=== PATIENT | female | born 1995 ===

== ENCOUNTER 2019-06-17 14:39 | Inpatient (IN) ==
[2019-06-17] MEDS ORDERED: LIDOCAINE 1% 50 ML VIAL MISC INJ ONE (15:55)
[2019-06-17] MEDS ORDERED: MEPERIDINE 50 MG/1 ML VIAL IM PRN (15:55)
[2019-06-17] MEDS ORDERED: ONDANSETRON 4 MG/2 ML VIAL IV PRN (15:55)
[2019-06-17] MEDS ORDERED: BUTORPHANOL 2 MG/ML VIAL IV PRN (15:55)
[2019-06-17] MEDS ORDERED: DINOPROSTONE VAG GEL 10 MG SYRINGE VAG ONE (15:58)
[2019-06-17] MEDS: LACTATED RINGERS 1,000 ML IV SCH (16:03)
[2019-06-17 16:41] LABS: Basophils % 0.2 % (0.0-0.8); Eosinophils % 0.2 % (0.00-10.9); Hematocrit 36.7 VOL% (35.7-47.0); Hemoglobin 11.9 GM/DL (12.0-16.0); Immature Granulocytes % 0.3 %; Immature Granulocytes Absolute 0.03 #; Lymphocytes # 2.4 10*3/uL (1.4-4.0); Mean Corpuscular HGB Conc 32.4 GM/DL (32-36); Mean Corpuscular Volume 88.6 FL (87-102); Mean Platelet Volume 10.3 FL (9.6-12.0); Monocytes % 7.2 % (1.7-12.7); Neutrophils % 64.1 % (38.7-73.9); Platelet Count 304 T/CUMM (130-400); Red Blood Count 4.14 MC/CUMM (3.8-5.5); Red Cell Distribution Width 13.6 % (9.3-17.3); White Blood Count 8.7 T/CUMM (4-12)
[2019-06-17 17:07] LABS: Alanine Aminotransferase 13 U/L (13-56); Albumin 2.6 G/DL (3.4-5.0); Alkaline Phosphatase 188 U/L (45-117); Aspartate Amino Transferase 12 U/L (0-37); Bilirubin,Total < 0.39 MG/DL (0.2-1.0); Blood Urea Nitrogen 10 MG/DL (7-18); Calcium 8.2 MG/DL (8.5-10.1); Estimated Glom Filtration Rate 140 ML/MIN; Glucose 66 MG/DL (74-106); Osmolality,Calculated 275.4 MOS/KG (273-304); Total Protein 7.1 G/DL (6.4-8.3)
[2019-06-18] MEDS ORDERED: OXYTOCIN/LR 20 UNIT/1,000 ML BAG IV SCH ×2 (02:00→13:30)
[2019-06-18] MEDS: LACTATED RINGERS 1,000 ML IV SCH ×2 (02:26→21:40)
[2019-06-18] MEDS ORDERED: AMPICILLIN INJ 2,000 MG in SODIUM CHLORIDE 0.9% 100 ML IV ONE (05:45)
[2019-06-18] MEDS ORDERED: AMPICILLIN INJ 1,000 MG in SODIUM CHLORIDE 0.9% 100 ML IV SCH (10:00)
[2019-06-19] MEDS: AMPICILLIN INJ 1,000 MG in SODIUM CHLORIDE 0.9% 100 ML IV SCH ×5 (04:06→15:59)
[2019-06-19] MEDS ORDERED: LACTATED RINGERS 1,000 ML IV ONE (16:22)
[2019-06-19] MEDS ORDERED: FAMOTIDINE 20 MG/2 ML VIAL IV ONE (16:22)
[2019-06-19] MEDS ORDERED: CITRIC ACID/SODIUM CITRATE 30 ML UDCUP PO ONE (16:22)
[2019-06-19] MEDS ORDERED: hydrOXYzine HCL 25 MG/1 ML VIAL IM PRN (16:24)
[2019-06-19] MEDS ORDERED: diphenhydrAMINE 50 MG/1 ML VIAL IV PRN ×2 (16:24)
[2019-06-19] MEDS ORDERED: PROMETHAZINE 25 MG/1 ML VIAL IM ONE (16:24)
[2019-06-19] MEDS ORDERED: OXYTOCIN/LR 30 UNIT/1,000 ML BAG IV ONE (16:39)
[2019-06-19] MEDS ORDERED: OXYTOCIN 10 UNIT/ML VIAL IM ONE (16:39)
[2019-06-19] MEDS ORDERED: ceFAZolin 2,000 MG in PREMIX 1 EACH IV ONE (16:40)
[2019-06-19] MEDS ORDERED: BUPIVACAINE SPINAL 0.75% 2 ML AMP SPINAL ONE (17:06)
[2019-06-19] MEDS ORDERED: MORPHINE 10 MG/10 ML VIAL ONE (17:06)
[2019-06-19] MEDS ORDERED: BUPIVACAINE 0.5% 50 ML VIAL ONE (17:06)
[2019-06-19] MEDS ORDERED: ONDANSETRON 4 MG/2 ML VIAL ONE (17:07)
[2019-06-19] MEDS ORDERED: PHENYLEPHRINE 1 MG/10 ML SYRINGE IV ONE (17:07)
[2019-06-19] MEDS: LACTATED RINGERS 1,000 ML IV SCH (17:26)
[2019-06-19 18:48] LABS: Cord Arterial Blood HCO3 24.7 MMOL/L
[2019-06-19 18:51] LABS: Cord Venous Blood HCO3 22.6 MMOL/L; Cord Venous Blood PCO2 41.5 MMHG; Cord Venous Blood PO2 26.4 MMHG
[2019-06-19 19:12] LABS: Apearance,Urine CLEAR (Clear); Bilirubin,Urine Negative (Negative); Blood, Urine Negative (Negative); Glucose,Urine (UA) Negative (Negative); Ketones,Urine 80 mg/dL (Negative); Mucus,Urine Occasional /LPF (Occasional); Nitrite,Urine Negative (Negative); Protein,Urine Negative; RBC,Urine 5 /HPF (0-4); Squamous Epithelial Cell,Urine Occasional /HPF (0-10); Urine Color Amber (Yellow); Urine Specific Gravity 1.023 (1.001-1.035); WBC,Urine 1 /HPF (0-6)
[2019-06-20] MEDS: ceFAZolin 1,000 MG in SYRINGE 1 EACH IV SCH ×2 (02:09→09:42)
[2019-06-20 02:18] LABS: Basophils % 0.2 % (0.0-0.8); Hematocrit 31.3 VOL% (35.7-47.0); Hemoglobin 10.3 GM/DL (12.0-16.0); Immature Granulocytes % 0.5 %; Immature Granulocytes Absolute 0.09 #; Lymphocytes # 1.3 10*3/uL (1.4-4.0); Lymphocytes % 7.8 % (21.3-54.2); Mean Corpuscular HGB Conc 32.9 GM/DL (32-36); Mean Corpuscular Volume 87.9 FL (87-102); Mean Platelet Volume 9.7 FL (9.6-12.0); Monocytes % 4.9 % (1.7-12.7); Neutrophils % 86.6 % (38.7-73.9); Platelet Count 234 T/CUMM (130-400); Red Blood Count 3.56 MC/CUMM (3.8-5.5); Red Cell Distribution Width 13.2 % (9.3-17.3); White Blood Count 16.9 T/CUMM (4-12)
[2019-06-20] MEDS ORDERED: MAGNESIUM HYDROXIDE SUSP 30 ML UDCUP PO PRN (07:31)
[2019-06-20] MEDS: METOCLOPRAMIDE 10 MG TABLET PO PRN ×2 (07:50→16:11)
[2019-06-20] MEDS: DOCUSATE SODIUM 100 MG CAPSULE PO SCH ×2 (09:42→20:55)
[2019-06-20 10:23] LABS: Basophils % 0.2 % (0.0-0.8); Eosinophils % 0.1 % (0.00-10.9); Hematocrit 28.8 VOL% (35.7-47.0); Hemoglobin 9.4 GM/DL (12.0-16.0); Immature Granulocytes % 0.5 %; Immature Granulocytes Absolute 0.08 #; Lymphocytes % 20.4 % (21.3-54.2); Mean Corpuscular HGB Conc 32.6 GM/DL (32-36); Mean Corpuscular Volume 89.2 FL (87-102); Mean Platelet Volume 9.8 FL (9.6-12.0); Monocytes % 4.8 % (1.7-12.7); Platelet Count 215 T/CUMM (130-400); Red Blood Count 3.23 MC/CUMM (3.8-5.5); Red Cell Distribution Width 13.4 % (9.3-17.3); White Blood Count 14.6 T/CUMM (4-12)
[2019-06-21] MEDS ORDERED: IBUPROFEN 800 MG TABLET PO PRN (05:50)
[2019-06-21] MEDS: METOCLOPRAMIDE 10 MG TABLET PO PRN (07:44)
[2019-06-21] MEDS: DOCUSATE SODIUM 100 MG CAPSULE PO SCH (07:44)
[2019-06-21] MEDS ORDERED: MAGNESIUM CITRATE 300 ML BOTTLE PO ONE (08:11)
[2019-06-21 11:16] VITALS: BP 90/52
[2019-06-21] MEDS ORDERED: DIPH/TET/ACEL PERT BOOSTER VACCINE 0.5 ML VIAL IM ONE (12:22)
== END 2019-06-21 14:50 | disposition home or self-care (01) | DRG 788 ==
LOC: N.LD 14:39 → N.OB 06-19 22:00
PROVIDERS: ADMIT Obstetrics & Gynecology; ATTEND Obstetrics & Gynecology
PROC: LDCSECT (ICD-10-PCS; 2019-06-19 17:30)

== ENCOUNTER 2020-05-29 16:44 | Inpatient (IN) ==
[2020-05-29] MEDS ORDERED: FAMOTIDINE 20 MG/2 ML VIAL IV ONE (18:27)
[2020-05-29] MEDS ORDERED: ceFAZolin 2,000 MG in PREMIX 1 EACH IV ONE (18:27)
[2020-05-29] MEDS ORDERED: CITRIC ACID/SODIUM CITRATE 30 ML UDCUP PO ONE (18:27)
[2020-05-29] MEDS ORDERED: OXYTOCIN 10 UNIT/ML VIAL IM ONE (18:29)
[2020-05-29] MEDS ORDERED: OXYTOCIN/LR 30 UNIT/1,000 ML BAG IV ONE ×2 (18:29→20:52)
[2020-05-29] MEDS: LACTATED RINGERS 1,000 ML IV PRN ×2 (18:36→18:47)
[2020-05-29 18:51] LABS: Basophils % 0.1 % (0.0-0.8); Eosinophils % 0.3 % (0.00-10.9); Hematocrit 25.4 VOL% (35.7-47.0); Hemoglobin 7.4 GM/DL (12.0-16.0); Immature Granulocytes Absolute 0.08 #; Lymphocytes # 1.9 10*3/uL (1.4-4.0); Lymphocytes % 24.5 % (21.3-54.2); Mean Corpuscular HGB Conc 29.1 GM/DL (32-36); Mean Corpuscular Volume 74.1 FL (87-102); Mean Platelet Volume 10.1 FL (9.6-12.0); Monocytes % 5.3 % (1.7-12.7); NRBC # 0.17 10*3/uL; Neutrophils % 68.8 % (38.7-73.9); Platelet Count 286 T/CUMM (130-400); Red Blood Count 3.43 MC/CUMM (3.8-5.5); Red Cell Distribution Width 17.2 % (9.3-17.3); White Blood Count 7.9 T/CUMM (4-12)
[2020-05-29] MEDS ORDERED: DEXAMETHASONE 4 MG/1 ML VIAL ONE (18:53)
[2020-05-29] MEDS ORDERED: ROPIVACAINE 0.5% 30 ML VIAL ONE (18:53)
[2020-05-29] MEDS ORDERED: TRANEXAMIC ACID 1,000 MG/10 ML VIAL ONE (19:00)
[2020-05-29] MEDS ORDERED: miSOPROStoL 200 MCG TABLET ONE (19:00)
[2020-05-29] MEDS ORDERED: OXYTOCIN/LR 20 UNIT/1,000 ML BAG IV ONE ×2 (19:00→20:35)
[2020-05-29] MEDS ORDERED: METHYLERGONOVINE 0.2 MG/1 ML AMP ONE (19:00)
[2020-05-29] MEDS ORDERED: CARBOPROST TROMETHAMINE 250 MCG/ML AMP IM ONE (19:01)
[2020-05-29] MEDS ORDERED: SODIUM CHLORIDE 0.9% 0 ML IV ONE (19:01)
[2020-05-29 19:04] LABS: Alanine Aminotransferase < 9 U/L (13-56); Alkaline Phosphatase 301 U/L (45-117); Aspartate Amino Transferase 11 U/L (0-37); Blood Urea Nitrogen 8 MG/DL (7-18); Calcium 7.8 MG/DL (8.5-10.1); Estimated Glom Filtration Rate 106 ML/MIN; Glucose 80 MG/DL (74-106); Osmolality,Calculated 277.3 MOS/KG (273-304); Total Protein 6.1 G/DL (6.4-8.3)
[2020-05-29 20:29] LABS: Apearance,Urine CLEAR (Clear); Bacteria,Urine Occasional /HPF (Few); Bilirubin,Urine Negative (Negative); Blood, Urine Negative (Negative); Glucose,Urine (UA) Negative (Negative); Ketones,Urine Negative (Negative); Mucus,Urine Occasional /LPF (Occasional); Nitrite,Urine Negative (Negative); Protein,Urine 100 MG/DL; RBC,Urine 1 /HPF (0-4); Urine Color Yellow (Yellow); Urine Specific Gravity 1.008 (1.001-1.035); Urine Urobilinogen < 2.0 EU/DL (0.2-1.0); WBC,Urine 4 /HPF (0-6)
[2020-05-29] MEDS ORDERED: ONDANSETRON 4 MG/2 ML VIAL IV PRN (20:35)
[2020-05-29] MEDS ORDERED: ACETAMINOPHEN 325 MG TABLET PO PRN (20:35)
[2020-05-29] MEDS ORDERED: MAGNESIUM HYDROXIDE SUSP 30 ML UDCUP PO PRN (20:35)
[2020-05-29] MEDS ORDERED: RHO(D) IMMUNE GLOBULIN 300 MCG SYRINGE IM ONE (20:35)
[2020-05-29] MEDS ORDERED: fentaNYL 100 MCG/2 ML VIAL ONE (20:49)
[2020-05-29] MEDS ORDERED: BUPIVACAINE SPINAL 0.75% 2 ML AMP SPINAL ONE (20:50)
[2020-05-29] MEDS ORDERED: MIDAZOLAM 2 MG/2 ML VIAL ONE (20:50)
[2020-05-29] MEDS ORDERED: MORPHINE 10 MG/10 ML VIAL ONE (20:50)
[2020-05-29 20:57] LABS: Cord Arterial Blood HCO3 22.5 MMOL/L
[2020-05-29 20:59] LABS: Cord Venous Blood HCO3 21.1 MMOL/L; Cord Venous Blood PCO2 39.6 MMHG; Cord Venous Blood PO2 30.6 MMHG
[2020-05-29] MEDS ORDERED: LACTATED RINGERS 1,000 ML IV SCH (21:00)
[2020-05-29 21:04] LABS: Cord Arterial Blood HCO3 23.3 MMOL/L
[2020-05-29 21:06] LABS: Cord Venous Blood PCO2 39.2 MMHG; Cord Venous Blood PO2 31.1 MMHG
[2020-05-30] MEDS: DOCUSATE SODIUM 100 MG CAPSULE PO SCH ×3 (00:37→21:55)
[2020-05-30] MEDS: ceFAZolin 1,000 MG in SYRINGE 1 EACH IV SCH ×2 (01:58→11:02)
[2020-05-30 04:20] LABS: Basophils % 0.1 % (0.0-0.8); Hematocrit 19.8 VOL% (35.7-47.0); Immature Granulocytes % 0.8 %; Immature Granulocytes Absolute 0.11 #; Lymphocytes # 1.4 10*3/uL (1.4-4.0); Mean Corpuscular HGB Conc 29.3 GM/DL (32-36); Mean Corpuscular Volume 73.6 FL (87-102); Mean Platelet Volume 10.2 FL (9.6-12.0); Monocytes % 4.6 % (1.7-12.7); NRBC # 0.13 10*3/uL; Neutrophils % 84.5 % (38.7-73.9); Platelet Count 218 T/CUMM (130-400); Red Blood Count 2.69 MC/CUMM (3.8-5.5); Red Cell Distribution Width 17.2 % (9.3-17.3); White Blood Count 14.1 T/CUMM (4-12)
[2020-05-30 04:23] LABS: Hemoglobin 5.8 GM/DL (12.0-16.0)
[2020-05-30] MEDS ORDERED: FUROSEMIDE 40 MG/4 ML VIAL IV PRN (04:32)
[2020-05-30] MEDS ORDERED: SODIUM CHLORIDE 0.9% 1,000 ML IV PRN (04:32)
[2020-05-30] MEDS: IBUPROFEN 800 MG TABLET PO PRN ×2 (04:48→18:12)
[2020-05-30] MEDS: METOCLOPRAMIDE 10 MG TABLET PO SCH ×3 (08:29→23:15)
[2020-05-30] MEDS: MAGNESIUM HYDROXIDE SUSP 30 ML UDCUP PO SCH ×2 (08:29→17:26)
[2020-05-30] MEDS: FERROUS SULFATE 325 MG TABLET PO SCH ×3 (08:29→21:55)
[2020-05-30] MEDS: MULTIVITAMIN (PRENATAL) TABLET PO SCH (08:29)
[2020-05-30] MEDS: SIMETHICONE CHEW 80 MG TABLET PO PRN ×2 (08:29→18:12)
[2020-05-30 15:33] LABS: Hematocrit 26.4 VOL% (35.7-47.0)
[2020-05-31] MEDS: MAGNESIUM HYDROXIDE SUSP 30 ML UDCUP PO SCH ×2 (01:38→09:23)
[2020-05-31] MEDS ORDERED: ACETAMINOPHEN/CODEINE 300-30 MG TABLET PO PRN (08:06)
[2020-05-31 08:10] VITALS: BP 130/69
[2020-05-31] MEDS: DOCUSATE SODIUM 100 MG CAPSULE PO SCH (08:46)
[2020-05-31] MEDS: IBUPROFEN 800 MG TABLET PO PRN (08:46)
[2020-05-31] MEDS: MULTIVITAMIN (PRENATAL) TABLET PO SCH (08:46)
[2020-05-31] MEDS: METOCLOPRAMIDE 10 MG TABLET PO SCH (08:46)
[2020-05-31] MEDS: FERROUS SULFATE 325 MG TABLET PO SCH (08:46)
[2020-05-31] MEDS: SIMETHICONE CHEW 80 MG TABLET PO PRN (08:46)
[2020-05-31] MEDS ORDERED: MEASLES/MUMPS/RUBELLA VACCINE 0.5 ML VIAL SUBCUT ONE (13:47)
== END 2020-05-31 14:45 | disposition home or self-care (01) | DRG 541 ==
LOC: N.LDOUT 16:44 → N.LD 18:13 → N.OB 23:50
PROVIDERS: ADMIT Obstetrics & Gynecology; ATTEND Obstetrics & Gynecology